=== PATIENT | male | born 1975 | race Caucasian/White ===

== ENCOUNTER 2017-10-20 11:33 | Inpatient (IN) | payer OTHER ==
[~2017-10-20] VITALS: Ht 180.3 cm; Wt 96.0 kg
[2017-10-20] MEDS ORDERED: ALBU0.63 NEB (11:59)
[2017-10-20] MEDS ORDERED: CHLO4TAB PO (11:59)
[2017-10-20] MEDS ORDERED: DILTIAZEM 125 MG in DEXTROSE 5% 100 ML IV SCH (12:05)
[2017-10-20] MEDS ORDERED: DILTIAZEM 5 MG/ML, 5ML ONE (12:21)
[2017-10-20 12:23] LABS: BASOPHILS # (AUTO) 0.01 x10^3/uL (0-0.1); BASOPHILS % (AUTO) 0 % (0-1); EOSINOPHILS # (AUTO) 0.03 x10^3/uL (0-0.4); EOSINOPHILS % (AUTO) 0 % (1-7); LYMPHOCYTES # (AUTO) 0.81 x10^3/uL (1-3.4); LYMPHOCYTES % (AUTO) 9 % (22-44); MD NO; MEAN CORPUSCULAR HEMOGLOBIN 31.7 pg (27.5-34.5); MEAN CORPUSCULAR HGB CONC 33.8 g/dL (33.2-36.2); MEAN CORPUSCULAR VOLUME 93.9 fL (81-97); MEAN PLATELET VOLUME 7.9 fL (7.4-10.4); MONOCYTES # (AUTO) 0.39 x10^3/uL (0.2-0.8); MONOCYTES % (AUTO) 5 % (2-9); NEUTROPHILS # (AUTO) 7.56 x10^3/uL (1.8-6.8); NEUTROPHILS % (AUTO) 86 % (42-75); PLATELET COUNT 196 x10^3/uL (130-400); RED BLOOD COUNT 4.99 x10^6/uL (4.38-5.82); RED CELL DISTRIBUTION WIDTH 13.2 % (9.4-14.8)
[2017-10-20] MEDS ORDERED: DILTIAZEM 5 MG/ML, 5ML IV ONE (12:30)
[2017-10-20 12:34] LABS: ALBUMIN 3.4 g/dL (3.4-5.0); ANION GAP 8 mmol/L (5-15); CHLORIDE 109 mmol/L (98-107); CREATININE 0.89 mg/dL (0.7-1.3)
[2017-10-20 12:36] LABS: INTERNATIONAL NORMALIZED RATIO 1.11 (0.93-1.1); PROTHROMBIN TIME 11.4 Seconds (9.6-11.5)
[2017-10-20 12:39] LABS: T4 (THYROXINE) 9.9 mcg/dL (4.5-12.1)
[2017-10-20 12:42] LABS: TROPONIN I 0.423 ng/mL (0.000-0.045)
[2017-10-20] MEDS ORDERED: HEPARIN 5,000 UNITS/ML, 1ML IV ONE (13:00)
[2017-10-20] MEDS ORDERED: HEPARIN 25,000 UNITS/500ML PMX 500 ML IV PRN (13:00)
[2017-10-20] MEDS ORDERED: SODIUM CHLORIDE FLUSH 10ML SYR IVF ONE (13:30)
[2017-10-20] MEDS ORDERED: OMNIPAQUE 350 MG/ML, 100ML BOTTLE ONE (13:31)
[2017-10-20] MEDS ORDERED: HEPARIN 25,000 UNITS/500ML PMX 500 ML ONE (13:39)
[2017-10-20] MEDS ORDERED: HEPARIN 5,000 UNITS/ML, 1ML ONE ×2 (13:39→13:44)
[2017-10-20] MEDS ORDERED: SODIUM CHLORIDE FLUSH 10ML SYR IVF PRN (14:30)
[2017-10-20] MEDS ORDERED: SODIUM CHLORIDE 0.9% 1,000 ML IV SCH (15:18)
[2017-10-20] MEDS ORDERED: ONDANSETRON 2MG/ML, 2ML IVPush PRN (15:30)
[2017-10-20] MEDS ORDERED: ACETAMINOPHEN 325 MG TABLET PO PRN (15:30)
[2017-10-20] MEDS ORDERED: HYDROcodone/APAP 5/325 TABLET PO PRN (15:30)
[2017-10-20] MEDS ORDERED: MORPHINE SULFATE 4 MG/ML, 1ML IVPush PRN (15:30)
[2017-10-20 15:58] LABS: HEMOGLOBIN A1C 5.5 % (4.2-6.3)
[2017-10-20 16:43] VITALS: BP 101/72
[2017-10-20 18:26] VITALS: BP 105/79
[2017-10-20 19:56] VITALS: BP 103/64
[2017-10-20] MEDS: HEPARIN 5,000 UNITS/ML, 1ML IV PRN (20:30)
[2017-10-20] MEDS: METOPROLOL TARTRATE 25 MG TABLET PO SCH (20:30)
[2017-10-20 21:50] LABS: TROPONIN I 0.236 ng/mL (0.000-0.045)
[2017-10-21 01:51] VITALS: BP 106/75
[2017-10-21 03:24] LABS: BASOPHILS # (AUTO) 0.03 x10^3/uL (0-0.1); BASOPHILS % (AUTO) 0 % (0-1); EOSINOPHILS # (AUTO) 0.07 x10^3/uL (0-0.4); EOSINOPHILS % (AUTO) 1 % (1-7); LYMPHOCYTES # (AUTO) 2.23 x10^3/uL (1-3.4); LYMPHOCYTES % (AUTO) 23 % (22-44); MD NO; MEAN CORPUSCULAR HEMOGLOBIN 31.3 pg (27.5-34.5); MEAN CORPUSCULAR HGB CONC 33.4 g/dL (33.2-36.2); MEAN PLATELET VOLUME 8.2 fL (7.4-10.4); MONOCYTES % (AUTO) 9 % (2-9); NEUTROPHILS # (AUTO) 6.68 x10^3/uL (1.8-6.8); NEUTROPHILS % (AUTO) 67 % (42-75); PLATELET COUNT 208 x10^3/uL (130-400); RED BLOOD COUNT 4.85 x10^6/uL (4.38-5.82)
[2017-10-21 03:29] LABS: ANION GAP 8 mmol/L (5-15); CALCIUM 8.7 mg/dL (8.5-10.1); CHLORIDE 110 mmol/L (98-107); CREATININE 0.77 mg/dL (0.7-1.3)
[2017-10-21] MEDS: HEPARIN 5,000 UNITS/ML, 1ML IV PRN (03:33)
[2017-10-21 07:00] VITALS: BP 139/80
[2017-10-21] MEDS ORDERED: DILTIAZEM 5 MG/ML, 5ML IVPush STA (09:06)
[2017-10-21] MEDS: APIXABAN 5 MG TABLET PO SCH ×2 (09:17→21:02)
[2017-10-21] MEDS: METOPROLOL TARTRATE 25 MG TABLET PO SCH ×2 (09:17→21:02)
[2017-10-21] MEDS ORDERED: DILTIAZEM 125 MG in SODIUM CHLORIDE 0.9% 100 ML IV PRN ×2 (09:30→22:30)
[2017-10-21] MEDS ORDERED: DILTIAZEM 5 MG/ML, 5ML IVPush ONE (10:00)
[2017-10-21 10:15] VITALS: BP 99/69
[2017-10-21 13:35] VITALS: BP 118/85
[2017-10-21 20:55] VITALS: BP 112/78
[2017-10-21 21:18] LABS: TROPONIN I 0.067 ng/mL (0.000-0.045)
[2017-10-22 01:07] VITALS: BP 104/75
[2017-10-22 06:55] VITALS: BP 123/85
[2017-10-22 08:23] LABS: BASOPHILS # (AUTO) 0.03 x10^3/uL (0-0.1); BASOPHILS % (AUTO) 0 % (0-1); EOSINOPHILS # (AUTO) 0.09 x10^3/uL (0-0.4); EOSINOPHILS % (AUTO) 1 % (1-7); LYMPHOCYTES # (AUTO) 1.78 x10^3/uL (1-3.4); LYMPHOCYTES % (AUTO) 21 % (22-44); MD NO; MEAN CORPUSCULAR HEMOGLOBIN 31.1 pg (27.5-34.5); MEAN CORPUSCULAR HGB CONC 33.6 g/dL (33.2-36.2); MEAN CORPUSCULAR VOLUME 92.5 fL (81-97); MEAN PLATELET VOLUME 8.2 fL (7.4-10.4); MONOCYTES # (AUTO) 1.02 x10^3/uL (0.2-0.8); MONOCYTES % (AUTO) 12 % (2-9); NEUTROPHILS # (AUTO) 5.73 x10^3/uL (1.8-6.8); NEUTROPHILS % (AUTO) 66 % (42-75); PLATELET COUNT 206 x10^3/uL (130-400); RED BLOOD COUNT 4.84 x10^6/uL (4.38-5.82); RED CELL DISTRIBUTION WIDTH 13.1 % (9.4-14.8)
[2017-10-22 08:30] LABS: ALANINE AMINOTRANSFERASE 27 U/L (12-78); ANION GAP 7 mmol/L (5-15); CALCIUM 8.4 mg/dL (8.5-10.1); CHLORIDE 109 mmol/L (98-107)
[2017-10-22 08:32] LABS: ALKALINE PHOSPHATASE 77 U/L (45-117); BILIRUBIN,TOTAL 1.4 mg/dL (0.2-1.0); CREATININE 0.83 mg/dL (0.7-1.3); TOTAL PROTEIN 6.4 g/dL (6.4-8.2)
[2017-10-22] MEDS ORDERED: METOPROLOL TARTRATE 25 MG TABLET PO SCH (09:00)
[2017-10-22] MEDS: APIXABAN 5 MG TABLET PO SCH ×2 (09:03→20:15)
[2017-10-22] MEDS: METOPROLOL TARTRATE 25 MG TABLET PO SCH ×2 (09:03→20:16)
[2017-10-22] MEDS ORDERED: DILTIAZEM 125 MG in SODIUM CHLORIDE 0.9% 100 ML IV PRN (09:30)
[2017-10-22 12:56] VITALS: BP 125/84
[2017-10-22] MEDS ORDERED: APIX5TAB PO ×2 (18:03)
[2017-10-22 18:53] VITALS: BP 110/75
[2017-10-23 03:07] VITALS: BP 104/71
[2017-10-23 04:58] LABS: BASOPHILS # (AUTO) 0.09 x10^3/uL (0-0.1); BASOPHILS % (AUTO) 1 % (0-1); EOSINOPHILS # (AUTO) 0.12 x10^3/uL (0-0.4); EOSINOPHILS % (AUTO) 1 % (1-7); LYMPHOCYTES % (AUTO) 20 % (22-44); MD NO; MEAN CORPUSCULAR HEMOGLOBIN 31.4 pg (27.5-34.5); MEAN CORPUSCULAR HGB CONC 33.6 g/dL (33.2-36.2); MEAN CORPUSCULAR VOLUME 93.3 fL (81-97); MEAN PLATELET VOLUME 8.6 fL (7.4-10.4); MONOCYTES # (AUTO) 1.24 x10^3/uL (0.2-0.8); MONOCYTES % (AUTO) 13 % (2-9); NEUTROPHILS # (AUTO) 6.41 x10^3/uL (1.8-6.8); NEUTROPHILS % (AUTO) 66 % (42-75); PLATELET COUNT 195 x10^3/uL (130-400); RED BLOOD COUNT 4.71 x10^6/uL (4.38-5.82)
[2017-10-23 05:08] LABS: CHLORIDE 107 mmol/L (98-107)
[2017-10-23 05:23] LABS: ANION GAP 10 mmol/L (5-15); CALCIUM 8.8 mg/dL (8.5-10.1); CREATININE 0.77 mg/dL (0.7-1.3)
[2017-10-23 08:30] VITALS: BP 121/83
[2017-10-23] MEDS: APIXABAN 5 MG TABLET PO SCH (08:30)
[2017-10-23] MEDS: METOPROLOL TARTRATE 25 MG TABLET PO SCH (08:30)
[2017-10-23] MEDS ORDERED: METOPROLOL TARTRATE 25 MG TABLET PO SCH (09:00)
[2017-10-23] MEDS ORDERED: METO25TA35 PO (11:15)
[2017-10-28] MEDS ORDERED: APIXABAN 5 MG TABLET PO SCH (09:00)
== END 2017-10-23 12:38 | disposition home or self-care (01) | DRG 175 ==
LOC: ED 14:03 → EDIP 14:04 → ED 14:52 → 5SO 16:27 → DCLOUNGE 10-23 12:14
PROVIDERS: ADMIT Internal Medicine; ATTEND Internal Medicine
DX: I26.09 Other pulmonary embolism with acute cor pulmonale (principal); J96.01 Acute respiratory failure with hypoxia; I48.92 Unspecified atrial flutter; D68.69 Other thrombophilia; F17.200 Nicotine dependence, unspecified, uncomplicated; I27.21 Secondary pulmonary arterial hypertension; J45.909 Unspecified asthma, uncomplicated; W18.30XA Fall on same level, unspecified, initial encounter; R73.9 Hyperglycemia, unspecified; Z60.2 Problems related to living alone; I07.1 Rheumatic tricuspid insufficiency; Y93.89 Activity, other specified; Y92.89 Other specified places as the place of occurrence of the external cause; Y99.2 Volunteer activity; Z79.01 Long term (current) use of anticoagulants; Z82.49 Family history of ischemic heart disease and other diseases of the circulatory system; Z72.89 Other problems related to lifestyle; Z79.899 Other long term (current) drug therapy
CPT/HCPCS: 36415; 71045; 71275; 80048; 80053; 82040; 82105; 82378; 83036; 83735; 83880; 84100; 84436; 84443; 84484; 84702; 85025; 85520; 85610; 85730; 93005; 93306; 93970; 96374; 96375; J1644; Q9967; J7030

== ENCOUNTER → 2020-04-30 | Outpatient (CLI) | payer OTHER ==
[~2020-04-30] MED LIST: ALBU0.63 NEB; APIX5TAB PO; CHLO4TAB PO; METO25TA35 PO
== END | disposition home or self-care (01) ==
LOC: CFH 15:05
PROVIDERS: ATTEND Internal Medicine Cardiovascular Disease
DX: I08.8 Other rheumatic multiple valve diseases (principal); I27.20 Pulmonary hypertension, unspecified
CPT/HCPCS: 93306